=== PATIENT | female | born 1965 | race Caucasian/White ===

== ENCOUNTER → 2016-10-26 | Outpatient (CLI) | payer OTHER ==
[~2016-10-26] MED LIST: FLUC150T PO
[2016-10-26 12:30] VITALS: BP 128/85
--- NOTE | 2016-10-26 12:30 | Urgent Care T Sheet Gen (E) ---
Intake General Temperature (Fahrenheit): 99.0 Pulse: 82 Blood Pressure Systolic: 128 Blood Pressure Diastolic: 85 Respirations: 16 SPO2: 98 Description of Symptoms Patient presents with probable yeast infection. Last one was in Jul. Treated with Diflucan. Patient is in town from [place] awaiting the of her grandchild. Patient first noticed itching, burning, redness and drainage on Tuesday. Has been using Monistat without relief. Denies any history of diabetes or estrogen use which could increase the probability of yeast infection. No recent antibiotic use. Respiratory Constitutional Symptoms: No syptoms reported Genitourinary: Discharge present Other (itching) All Other Systems Reviewed Remaining Systems: All other systems reviewed with negative findings Physical Exam Physical Exam General Appearance: WD/WN No apparent distress Comment pelvic exam revealed redness, white thick discharge and edema to the vulvovaginal area. Departure Urgent Care Impression Impression: Primary Impression: Vulvovaginal candidiasis Departure Disposition: HOME OR SELF-CARE Condition: Stable Additional Instructions: Exam findings are consistent with yeast infection I have started her on Diflucan. Patient is concerned that she has had an infection in Jul and now in October. Reassured her that 4+ in a year is concerning. Keep track of symptoms. If they persist, then f/u with PCP. Patient understands DC instructions. All questions were answered. Scripts Fluconazole (Diflucan)150 Mg Ueatco211 Mg PO ONCE #2 TAB Take 1 tab now. May repeat as needed in 3-4 days. Prov:JESE MORALES 10/26/16 End of report . JESE MORALES October 26, 2016 12:30
== END ==
LOC: MHUC 12:00
PROVIDERS: ATTEND Physician Assistant
DX: B37.3 Candidiasis of vulva and vagina (principal)
CPT/HCPCS: 99203